=== PATIENT | female | born 2000 | race Caucasian/White ===

== ENCOUNTER 2023-12-18 13:45 | Emergency (ER) | payer OTHER ==
[2023-12-18 14:24] VITALS: BP 126/86; PULSE 76; RESP 16; TEMP 99.3; BMI 39.9
[2023-12-18 15:18] LABS: INR 1.17 (0.83-1.09); PROTHROMBIN TIME (PATIENT) 13.6 SEC (9.7-13.0)
[2023-12-18 15:20] LABS: ACTIVATED PTT 33.2 SECONDS (25.2-36.5); HEMATOCRIT 43.5 % (32.4-45.2); HEMOGLOBIN 14.2 G/dL (10.7-15.3); MCH 24.7 pg (25.7-33.7); MCHC 32.6 g/dl (32.0-36.0); MEAN CELL VOLUME 75.7 fl (80-96); MEAN PLT VOLUME 7.6 fl (7.5-11.1); PLATELET COUNT 285.4 10^3/uL (134-434); RBC 5.74 10^6/uL (3.60-5.2); RDW 15.8 % (11.6-15.6); WHITE BLOOD COUNT 8.7 10^3/uL (4.0-10.8)
[2023-12-18 15:25] LABS: ALBUMIN 4.6 g/dl (3.4-5.0); ALK PHOS 53 U/L (45-117); ANION GAP 9 mmol/L (4-13); BILIRUBIN,TOTAL 0.5 mg/dl (0.2-1); CALCIUM 9.5 mg/dl (8.5-10.1); CHLORIDE 105 mmol/L (98-107); CO2 24 mmol/L (21-32); CREATININE 0.9 mg/dl (0.6-1.3); GLUCOSE,RANDOM 99 mg/dl (74-106); SGOT/AST 11 U/L (15-37); SGPT/ALT 13 U/L (7-52); SODIUM 138 mmol/L (136-145); TOT PROT 7.4 g/dl (6.4-8.2)
[2023-12-18 15:30] LABS: PLATELET ESTIMATE ADEQUATE
[2023-12-18] MEDS ORDERED: LIDOCAINE 5% TOPICAL PATCH ONE (15:46)
[2023-12-18] MEDS ORDERED: KETOROLAC TROMETHAMINE 30 MG/1 ML VIAL ONE (15:46)
[2023-12-18] MEDS: LIDOCAINE 5% TOPICAL PATCH TP ONE (15:50)
[2023-12-18] MEDS: KETOROLAC TROMETHAMINE 30 MG/1 ML VIAL IM ONE (15:50)
[2023-12-18] MEDS ORDERED: LIDOCAINE PATCH REMOVAL MC ONE (22:00)
== END 2023-12-18 16:43 | disposition home or self-care (01) ==
LOC: FER 13:45
PROC: 3E0233Z Introduction of Anti-inflammatory into Muscle, Percutaneous Approach (ICD-10-PCS; principal; 2023-12-18)
DX: M62.830 Muscle spasm of back (principal); M25.512 Pain in left shoulder; M54.6 Pain in thoracic spine
CPT/HCPCS: 36415; 71046-TC-FY; 80053; 84484; 84703; 85025; 85379; 85610; 85730; 93005; 99285-25